=== PATIENT | female | born 1945 | race Caucasian/White ===

== ENCOUNTER 2021-03-18 16:54 | Emergency (ER) | payer OTHER ==
[2021-03-18 17:29] VITALS: TEMP 98.3; BMI 37.2
[2021-03-18] MEDS ORDERED: CASIRIVIMAB/IMDEVIMAB 10 ML in SODIUM CHLORIDE 100 ML IVPB ONE (17:46)
[2021-03-18 19:18] LABS: HEMATOCRIT 41.9 % (32.4-45.2); HEMOGLOBIN 14.3 GM/dL (10.7-15.3); MCH 30.2 pg (25.7-33.7); MCHC 34.1 g/dl (32.0-36.0); MEAN CELL VOLUME 88.6 fl (80-96); MEAN PLT VOLUME 9.1 fl (7.5-11.1); PLATELET COUNT 188 10^3/uL (134-434); RBC 4.73 M/mm3 (3.60-5.2); RDW 14.2 % (11.6-15.6); WHITE BLOOD COUNT 6.4 K/mm3 (4.0-10.0)
[2021-03-18 19:45] LABS: CHLORIDE 105 mmol/L (98-107); SODIUM 138 mmol/L (136-145)
[2021-03-18 19:47] LABS: CALCIUM 8.9 mg/dL (8.5-10.1)
[2021-03-18 19:48] LABS: ANION GAP 7 MMOL/L (8-16); CO2 26 mmol/L (21-32); GLUCOSE,RANDOM 113 mg/dL (74-106)
[2021-03-18 19:51] LABS: CREATININE 0.8 mg/dL (0.55-1.3); SGOT/AST 26 U/L (15-37); SGPT/ALT 41 U/L (13-61)
[2021-03-18 19:52] LABS: BILIRUBIN,TOTAL 0.5 mg/dL (0.2-1)
[2021-03-18 19:53] LABS: TOT PROT 8.1 g/dl (6.4-8.2)
[2021-03-18 19:54] LABS: ALK PHOS 67 U/L (45-117)
[2021-03-18 20:27] VITALS: BP 130/70; PULSE 78
[2021-03-18 20:48] LABS: ANISOCYTOSIS 0; MACROCYTOSIS 0; PLATELET ESTIMATE NORMAL
== END 2021-03-18 20:29 | disposition home or self-care (01) ==
LOC: JER 16:54 → JCOVINFU 16:54 → JER 20:29
DX: U07.1 COVID-19 (principal)
CPT/HCPCS: 36415; 71046-TC-FY; 80053; 84484; 85025; 93005; 93010; 99285-25